=== PATIENT | male | born 1950 | race Caucasian/White ===

== ENCOUNTER 2017-11-29 18:09 | Emergency (ER) | payer SELFPAY ==
[~2017-11-29] VITALS: Ht 177.8 cm; Wt 72.7 kg
[2017-11-29 18:10] VITALS: BP 151/84; PULSE 70; RESP 14; TEMP 98.4; O2SAT 98
[2017-11-29] MEDS ORDERED: IBUP-232 PO (20:45)
--- NOTE | 2017-11-29 20:45 | PD ---
HPI Chief Complaint: Fall Time Seen by Provider: 20:19 Travel History International Travel<30 days: No Contact w/Intl Traveler<30days: No Traveled to known affect area: No History of Present Illness HPI 66-year-old male came to the emergency room with history of left shoulder injury after he tripped over some people in a dark room and landed on his left shoulder. Patient says this happened at 5 in the evening. Since then he took 2 aspirins but it has not done anything to the pain. He says "it hurts like hell". No history of head injury. No history of loss of consciousness. [facility] Past Medical History Narrative Medical List of his past medical, surgical, social and family history is reviewed from the nursing note. Medical History: Denies Significant Hx Immunizations Current: Yes Tetanus Vaccination: Unknown Influenza Vaccination: No Social History Alcohol Use: No Tobacco Use: No Substance Use: No Allergies-Medications (Allergen,Severity, Reaction): Coded Allergies: No Known Allergies (Unverified , 11/29/17) Comments No known drug allergies. Reported Meds & Prescriptions Reported Meds & Active Scripts Active Ibuprofen 600 Mg Tab 600 Mg PO Q6H PRN Narrative Medication List of his home medications reviewed from the nursing note. Review of Systems Except as stated in HPI: all other systems reviewed are Neg Musculoskeletal: Positive: Pain Physical Exam Narrative GENERAL: Awake, alert, irritable, mild distress SKIN: Focused skin assessment warm/dry. HEAD: Atraumatic. Normocephalic. EYES: Pupils equal and round. No scleral icterus. No injection or drainage. ENT: No nasal bleeding or discharge. Mucous membranes pink and moist. NECK: Trachea midline. No JVD. CARDIOVASCULAR: Regular rate and rhythm. No murmur appreciated. RESPIRATORY: No accessory muscle use. Clear to auscultation. Breath sounds equal bilaterally. GASTROINTESTINAL: Abdomen soft, non-tender, nondistended. Hepatic and splenic margins not palpable. MUSCULOSKELETAL: No obvious deformities. No clubbing. No cyanosis. No edema. Decreased range of motion at the left shoulder joint from pain. NEUROLOGICAL: Awake and alert. No obvious cranial nerve deficits. Motor grossly within normal limits. Normal speech. PSYCHIATRIC: Appropriate mood and affect; insight and judgment normal. Data Data Last Documented VS Vital Signs Date Time Temp Pulse Resp B/P (MAP) Pulse Ox O2 Delivery O2 Flow Rate FiO2 11/29/17 21:00 11/29/17 18:10 98.4 70 14 98 Orders Orders Ketorolac Inj (Toradol Inj) (11/29/17 21:00) [facility] Medical Decision Making Medical Screen Exam Complete: Yes Emergency Medical Condition: Yes Medical Record Reviewed: Yes Differential Diagnosis Shoulder fracture, shoulder contusion, shoulder strain Narrative Course 8:49 PM I mentioned to the patient that I would get an x-ray of his shoulder at which point he said he knows that it is not broken and hence and x-rays not needed. He would not take an ibuprofen since [place] did not do anything. Patient started getting extremely argumentative at this point. He was dictating his care which I explained to him does not work. He does have a choice whether to do the x-ray or not but he cannot dictate the medication that he should take. I have ordered a dose of IM Toradol and he'll be discharged home. Procedures EKG Prior to Arrival: No Diagnosis Primary Impression: Shoulder injury Qualified Codes: S49.92XA - Unspecified injury of left shoulder and upper arm , initial encounter Referrals: Primary Care Physician Med/Other Pt SpecificInfo: Prescription(s) given Scripts Ibuprofen (Ibuprofen) 600 Mg Tab 600 MG PO Q6H Y for Pain/Inflammation, #40 TAB 0 Refills Prov: Zina Santiago MD 11/29/17 Disposition: 01 DISCHARGE HOME Condition: Stable Zina Santiago MD Nov 29, 2017 20:45
[2017-11-29] MEDS ORDERED: KETOROLAC TROMETHAMINE 60 MG/2 ML (IM) VIAL IM ONE (21:00)
== END 2017-11-29 21:01 | disposition home or self-care (01) ==
LOC: NEPD 18:09
DX: S49.92XA Unspecified injury of left shoulder and upper arm, initial encounter (principal); W03.XXXA Other fall on same level due to collision with another person, initial encounter
CPT/HCPCS: 96372; 99283; J1885